=== PATIENT | female | born 1985 | race Caucasian/White ===

== ENCOUNTER 2019-03-28 12:05 | Observation (INO) | payer OTHER, SELFPAY ==
--- NOTE | ~2019-03-28 | US_ITS ---
EXAMINATION: US OB follow up w BPP DATE: 03/28/2019 14:16 INDICATION: Small for gestational age. Assess amniotic fluid index and biophysical profile. TECHNIQUE: Real-time pelvic ultrasound was performed. The interpreting radiologist was not present fo r the study. COMPARISON: None FINDINGS: There is a single living fetus in vertex presentation. The placenta is posterior fundal. heart rate is 125 beats per minute (bpm). Normal amniotic fluid index of 11.8 cm (5th%-95%: 7.5-4.4 cm at 37 weeks estimated gestational age). The following biometric data were obtained: BPD: 9.3 cm -> 38 weeks 0 days Head circumference: 33.2 cm -> 37 weeks 6 days Abdominal circumference: 33.6 cm -> 37 weeks 4 days Femur length: 7.1 cm -> 36 weeks 3 days These measurements are concordant. Head circumference to abdominal circumference ratio: 0.99 (normal range 0.91-1.05). Estimated weight: 3191 g (+/-) 479 g, 7 lbs 1 oz (+/-) 1 lb 1 oz Biophysical profile performed by the technologist: breathing (30 sec sustained breathing in 30 minutes): 2 out of 2 movement (3 gross body movements in 30 minutes): 2 out of 2 tone (one episode of cpbyngb-tvptzzekc-tldjevj limb movement): 2 out of 2 Amniotic fluid pocket (2 cm): 2 out of 2 Total score: 8 out of 8 IMPRESSION: 1. Single living fetus in vertex presentation. 2. Normal amniotic fluid index of 11.8 cm. 3. Biophysical profile 8 out of 8. 4. Gestational age by ultrasound of 37 weeks 3 day(s) +/- 2 weeks and 4 days with ultrasound estimat ed date of delivery (DOMO) of 04/15/2019. Estimated weight is 54th percentile by Hadlock criteria when 04/14/2019 is used as the DOMO. Please correlate with clinical information or earlier ultrasounds f or most accurate DOMO. Reviewed, dictated and finalized at location A. GN ARCHITECT IMPRESSION: 1. Single living fetus in vertex presentation. 2. Normal amniotic fluid index of 11.8 cm. 3. Biophysical profile 8 out of 8. 4. Gestational age by ultrasound of 37 weeks 3 day(s) +/- 2 weeks and 4 days w ith ultrasound estimated date of delivery (DOMO) of 04/15/2019. Estimated we ight is 54th percentile by Hadlock criteria when 04/14/2019 is used as the DOMO. P lease correlate with clinical information or earlier ultrasounds for most accur ate DOMO.
[2019-03-28 12:41] VITALS: BP 108/71; PULSE 94
[2019-03-28 13:01] VITALS: BP 104/71; PULSE 92
[2019-03-28 13:21] VITALS: BP 105/66; PULSE 89
[2019-03-28 14:09] LABS: Amphetamine Screen Urine Negative (Negative); Barbiturate Screen Urine Negative (Negative); Benzodiazepines Screen Urine Negative (Negative); Cannabinoid Screen Urine Negative (Negative); Cocaine Screen Urine Negative (Negative); Methadone Screen Urine Negative (Negative); Opiate Screen Urine Negative (Negative); Phencyclidine Screen Urine Negative (Negative)
[2019-03-28 14:13] LABS: Add Urine Microscopic? YES; Appearance Urine Cloudy (Clear); Bacteria Urine 2+ /hpf; Bilirubin Urine Negative (Negative); Blood Urine 3+ (Negative); Color Urine Yellow (Yellow); Glucose Urine UA Negative (Negative); Ketones Urine Negative (Negative); Leukocyte Esterase Ur 3+ LEU/UL (NEGATIVE); Mucus Urine Few /lpf; Nitrate Urine Negative (Negative); Protein Urine 2+ mg/dL (Negative); RBC Urine >75 /hpf (0-2); Specific Grav Ur 1.016 (1.001-1.035); Squamous Epithelial Cell Urine Many /hpf (Few); Urobilinogen Urine Negative mg/dL (<2.0); WBC Clumps Urine Present /HPF; WBC Urine 51-75 /hpf (0-3)
[2019-03-28] MEDS: LACTATED RINGERS 1,000 ML 1000 ML IV CONT (14:30)
[2019-03-28 14:43] LABS: Basophils Absolute Auto 0.1 K/mm3 (0.0-0.1); Basophils Percent Auto 0.5 % (0.2-1.2); Eosinophils Absolute Auto 0.1 K/mm3 (0-0.3); Eosinophils Percent Auto 0.3 % (0-4.4); Hemoglobin 12.8 g/dL (12.0-15.0); Immature Granulocyte Absolute 0.33 K/mm3 (0.00-0.031); Lymphocytes Absolute Auto 1.59 K/mm3 (0.9-3.2); Lymphocytes Percent Auto 9.8 % (18.3-44.2); Mean Corpuscular HGB Conc 32.8 g/dl (32-36); Mean Corpuscular Hemoglobin 28.5 pg (26-34); Mean Corpuscular Volume 86.9 fl (80-100); Mean Platelet Volume 12.8 fl (7.4-10.4); Monocytes Percent Auto 6.1 % (2.6-8.5); Neutrophils Absolute Auto 13.2 K/mm3 (1.3-6.7); Neutrophils Percent Auto 81.3 % (45.5-73.1); Platelet Count Result 149 k/mm3 (150-375); Red Blood Count 4.49 M/mm3 (4.2-5.4); Red Cell Distribution Width 13.4 % (11.5-14.5); White Blood Count 16.2 K/mm3 (4.5-10.0)
--- NOTE | 2019-03-28 15:08 | OBADM ---
This patient, Soraya Chris, admitted to the OB room OB Post 115 for observation. Patient/family oriented to hospital policies and general routines including ID bracelet, bed and alarms, visiting hours, pain management, procedures, bathroom and other care routines, personal items, smoking policy, room service/diet, and visiting hours. Patient/Family are encouraged to report perceived risks to care and to ask questions if they do not understand what they are told or what they should do.
[2019-03-28 15:18] LABS: Alanine Aminotransferase 13 U/L (4-35); Albumin Level 3.8 g/dL (3.5-5.1); Alkaline Phosphatase 218 U/L (38-126); Aspartate Amino Transferase 23 U/L (14-36); Bilirubin,Total 0.4 mg/dL (0.2-1.3); Blood Urea Nitrogen 6 mg/dL (7-17); Calcium 9.1 mg/dL (8.4-10.2); Carbon Dioxide 19 mmol/L (22-30); Chloride 102 mmol/L (98-107); Estimated Glomerular Filt Rate > 60; Glucose 81 mg/dL (65-105); Potassium 3.9 mmol/L (3.4-5.0); Sodium 136 mmol/L (137-145); Uric Acid 5.7 mg/dL (2.5-7.5)
--- NOTE | 2019-04-01 14:37 | PM.OBTRLD ---
OB - Triage/Final Diagnosis Visit Information Date of evaluation: 03/28/19 Comments/Additional reasons for admission: pelvic pain Evaluation Baseline heart rate: 130 Variability: Average (6-10) monitor accelerations: Present monitor decelerations: None Laboratory results: Laboratory Tests 03/28/19 03/28/19 03/28/19 13:32 13:35 14:37 WBC 16.2 H RBC 4.49 Hgb 12.8 Hct 39.0 MCV 86.9 MCH 28.5 MCHC 32.8 RDW 13.4 Plt Count 149 L MPV 12.8 H Immature Gran % (Auto) 2.0 H Neut % (Auto) 81.3 H Lymph % (Auto) 9.8 L [place] % (Auto) 6.1 Eos % (Auto) 0.3 Baso % (Auto) 0.5 Lymph # (Auto) 1.59 [place] # (Auto) 1.0 H Eos # (Auto) 0.1 Baso # (Auto) 0.1 Abs Immat Gran (auto) 0.33 H Absolute Neuts (auto) 13.2 H Absolute Nucleated RBC 0.0 Nucleated RBC % 0.0 Sodium Potassium Chloride Carbon Dioxide BUN Creatinine Estim Creat Clear Calc Estimated GFR Glucose Uric Acid Calcium Total Bilirubin AST ALT Alkaline Phosphatase Total Protein Albumin Urine Color Yellow Urine Appearance Cloudy H Urine pH 7.0 Ur Specific [place] 1.016 Urine Protein 2+ H Urine Glucose (UA) Negative Urine Ketones Negative Ur Blood (Man) 3+ H Urine Nitrate Negative Urine Bilirubin Negative Urine Urobilinogen Negative Ur Leukocyte Esterase 3+ H Urine RBC >75 H Urine WBC 51-75 H Urine WBC Clumps Present H Ur Squamous Epith Cells Many H Urine Bacteria 2+ H Urine Mucus Few H Urine Opiates Screen Negative Urine Methadone Screen Negative Ur Barbiturates Screen Negative Ur Phencyclidine Scrn Negative Ur Amphetamine Screen Negative U Benzodiazepines Scrn Negative Urine Cocaine Screen Negative U Cannabinoids Screen Negative 03/28/19 14:37 WBC RBC Hgb Hct MCV MCH MCHC RDW Plt Count MPV Immature Gran % (Auto) Neut % (Auto) Lymph % (Auto) [place] % (Auto) Eos % (Auto) Baso % (Auto) Lymph # (Auto) [place] # (Auto) Eos # (Auto) Baso # (Auto) Abs Immat Gran (auto) Absolute Neuts (auto) Absolute Nucleated RBC Nucleated RBC % Sodium 136 L Potassium 3.9 Chloride 102 Carbon Dioxide 19 L BUN 6 L Creatinine 0.60 L Estim Creat Clear Calc Not Reportable Estimated GFR > 60 Glucose 81 Uric Acid 5.7 Calcium 9.1 Total Bilirubin 0.4 AST 23 ALT 13 Alkaline Phosphatase 218 H Total Protein 8.0 Albumin 3.8 Urine Color Urine Appearance Urine pH Ur Specific [place] Urine Protein Urine Glucose (UA) Urine Ketones Ur Blood (Man) Urine Nitrate Urine Bilirubin Urine Urobilinogen Ur Leukocyte Esterase Urine RBC Urine WBC Urine WBC Clumps Ur Squamous Epith Cells Urine Bacteria Urine Mucus Urine Opiates Screen Urine Methadone Screen Ur Barbiturates Screen Ur Phencyclidine Scrn Ur Amphetamine Screen U Benzodiazepines Scrn Urine Cocaine Screen U Cannabinoids Screen Final Diagnosis (1) UTI in : Code(s): O23.40 - Unspecified infection of urinary tract in , unspecified trimester Status: Acute Plan: FHT's reassuring, occasional mild contractions. Pt given IV fluids and contractions/pain subsided. Pt noted to have UTI; given Ancef 2g IV once.-- no ss/sx of pyelo Discharged home in stable condition.
--- NOTE | 2019-04-03 09:18 | PM.OBTRLD ---
OB - Triage/Final Diagnosis Evaluation Laboratory results: Laboratory Tests 03/28/19 03/28/19 03/28/19 13:32 13:35 14:37 WBC 16.2 H RBC 4.49 Hgb 12.8 Hct 39.0 MCV 86.9 MCH 28.5 MCHC 32.8 RDW 13.4 Plt Count 149 L MPV 12.8 H Immature Gran % (Auto) 2.0 H Neut % (Auto) 81.3 H Lymph % (Auto) 9.8 L [place] % (Auto) 6.1 Eos % (Auto) 0.3 Baso % (Auto) 0.5 Lymph # (Auto) 1.59 [place] # (Auto) 1.0 H Eos # (Auto) 0.1 Baso # (Auto) 0.1 Abs Immat Gran (auto) 0.33 H Absolute Neuts (auto) 13.2 H Absolute Nucleated RBC 0.0 Nucleated RBC % 0.0 Sodium Potassium Chloride Carbon Dioxide BUN Creatinine Estim Creat Clear Calc Estimated GFR Glucose Uric Acid Calcium Total Bilirubin AST ALT Alkaline Phosphatase Total Protein Albumin Urine Color Yellow Urine Appearance Cloudy H Urine pH 7.0 Ur Specific [place] 1.016 Urine Protein 2+ H Urine Glucose (UA) Negative Urine Ketones Negative Ur Blood (Man) 3+ H Urine Nitrate Negative Urine Bilirubin Negative Urine Urobilinogen Negative Ur Leukocyte Esterase 3+ H Urine RBC >75 H Urine WBC 51-75 H Urine WBC Clumps Present H Ur Squamous Epith Cells Many H Urine Bacteria 2+ H Urine Mucus Few H Urine Opiates Screen Negative Urine Methadone Screen Negative Ur Barbiturates Screen Negative Ur Phencyclidine Scrn Negative Ur Amphetamine Screen Negative U Benzodiazepines Scrn Negative Urine Cocaine Screen Negative U Cannabinoids Screen Negative 03/28/19 14:37 WBC RBC Hgb Hct MCV MCH MCHC RDW Plt Count MPV Immature Gran % (Auto) Neut % (Auto) Lymph % (Auto) [place] % (Auto) Eos % (Auto) Baso % (Auto) Lymph # (Auto) [place] # (Auto) Eos # (Auto) Baso # (Auto) Abs Immat Gran (auto) Absolute Neuts (auto) Absolute Nucleated RBC Nucleated RBC % Sodium 136 L Potassium 3.9 Chloride 102 Carbon Dioxide 19 L BUN 6 L Creatinine 0.60 L Estim Creat Clear Calc Not Reportable Estimated GFR > 60 Glucose 81 Uric Acid 5.7 Calcium 9.1 Total Bilirubin 0.4 AST 23 ALT 13 Alkaline Phosphatase 218 H Total Protein 8.0 Albumin 3.8 Urine Color Urine Appearance Urine pH Ur Specific [place] Urine Protein Urine Glucose (UA) Urine Ketones Ur Blood (Man) Urine Nitrate Urine Bilirubin Urine Urobilinogen Ur Leukocyte Esterase Urine RBC Urine WBC Urine WBC Clumps Ur Squamous Epith Cells Urine Bacteria Urine Mucus Urine Opiates Screen Urine Methadone Screen Ur Barbiturates Screen Ur Phencyclidine Scrn Ur Amphetamine Screen U Benzodiazepines Scrn Urine Cocaine Screen U Cannabinoids Screen Final Diagnosis (1) Near syncope: Code(s): R55 - Syncope and collapse Status: Acute Plan: Pt was evaluated for near syncopal episode in clinic and small for gestational age. She was given IV fluids and felt better. BP's were WNL. Labs were WNL. NST was reassuring w/ occasional contractions. US showed BPP 8/8, normal fluid, and normal growth, cephalic position. She was discharged home in stable condition.
== END 2019-03-28 16:35 | disposition home or self-care (01) ==
PROVIDERS: Admitting Provider Obstetrics & Gynecology; Visit Provider Obstetrics & Gynecology
DX: O26.893 Other specified pregnancy related conditions, third trimester (principal); R10.2 Pelvic and perineal pain; R55 Syncope and collapse; O23.43 Unspecified infection of urinary tract in pregnancy, third trimester; O36.5930 Maternal care for other known or suspected poor fetal growth, third trimester, not applicable or unspecified; Z3A.37 37 weeks gestation of pregnancy
CPT/HCPCS: 36415; 76816; 76819; 80053; 80307; 81001; 84550; 85025; 87077; 87086; 87088; 87186; 96374; G0378; G0379; J0696; J7120

== ENCOUNTER 2019-04-06 11:42 | Observation (INO) | payer OTHER, SELFPAY ==
[2019-04-06 14:10] VITALS: TEMP 36.9
[2019-04-06 14:19] VITALS: BMI 22.0
--- NOTE | 2019-04-06 14:19 | OBADM ---
This patient, Soraya Chris, admitted to the OB room Labor/Delivery/Recovery 103 for observation. Patient/family oriented to hospital policies and general routines including ID bracelet, bed and alarms, visiting hours, pain management, procedures, bathroom and other care routines, personal items, smoking policy, room service/diet, and visiting hours. Patient/Family are encouraged to report perceived risks to care and to ask questions if they do not understand what they are told or what they should do.
--- NOTE | 2019-04-10 16:23 | PM.OBTRLD ---
OB - Triage/Final Diagnosis Final Diagnosis (1) False labor: Code(s): O47.9 - False labor, unspecified Status: Acute
== END 2019-04-06 14:37 | disposition home or self-care (01) ==
PROVIDERS: Admitting Provider Obstetrics & Gynecology; Visit Provider Obstetrics & Gynecology
DX: O47.1 False labor at or after 37 completed weeks of gestation (principal); Z3A.38 38 weeks gestation of pregnancy
CPT/HCPCS: G0378; G0379

== ENCOUNTER 2019-04-11 06:51 | Inpatient (IN) | payer OTHER, SELFPAY ==
[2019-04-11] VITALS (74 sets, daily range): BP systolic 107–143; BP diastolic 52–109; PULSE 72–129; RESP 12–18; TEMP 36.6–37.7; O2SAT 96–100; BMI 25.2
--- NOTE | 2019-04-11 06:51 | LDADM ---
This patient, Soraya Chris, was admitted to Labor/Delivery/Recovery 106 on 04/11/19 at 06:51. Plans for labor, pain management and were discussed with patient. Patient/family oriented to hospital policies and general routines including ID bracelet, bed and alarms, visiting hours, pain management, procedures, bathroom and other care routines, personal items, smoking policy, room service/diet and guest tray routines, infant security routines, and visiting hours. Patient/Family are encouraged to report perceived risks to care and to ask questions if they do not understand what they are told or what they should do. See OBIX for further documentation.
[2019-04-11] MEDS: AMPICILLIN 2 GM/NS 100 ML 2 GM/100 ML BAG IVPB (07:10)
[2019-04-11] MEDS: LACTATED RINGERS 1,000 ML 125 ML IV CONT ×2 (07:10→08:32)
--- NOTE | 2019-04-11 07:40 | PM.IMHP ---
H&P: HPI History of Present Illness Chief complaint: contractions Narrative: Soraya Newton is a 33yo @ 39.4wks who presented to L&D early in the morning via ambulance due to regular and painful contractions. She denied vaginal bleeding or leakage of fluid. She felt good movement. She denied CP, SOB, IRIVN, vision changes, fever, chills. She is GBS positive. Review of Systems Review of Systems: All systems reviewed & are unremarkable except as noted in HPI and below [facility] Family History Family History Father Hypertension Mother Hypotension Sibling Psoriasis Meds Home Medications and Allergies Home Medications Medication Instructions Recorded Confirmed Type PNV cmb#95-ferrous fumarate-FA 1 tablet PO DAILY 03/17/19 04/11/19 History [] Allergies Allergy/AdvReac Type Severity Reaction Status Date / Time No Known Allergies Allergy Verified 04/11/19 09:01 Vital Signs Vital Signs - 24 hr 04/11/19 07:31 04/11/19 07:46 04/11/19 08:00 Temperature 37.3 C Pulse Rate 86 97 83 Respiratory Rate Blood Pressure 113/70 115/76 115/73 Pulse Oximetry 04/11/19 08:16 04/11/19 08:31 04/11/19 08:35 Temperature Pulse Rate 91 118 H 111 H Respiratory Rate Blood Pressure 113/83 123/102 H 127/81 Pulse Oximetry 04/11/19 08:37 04/11/19 08:38 04/11/19 08:39 Temperature Pulse Rate 101 H 97 Respiratory Rate Blood Pressure 121/63 114/71 Pulse Oximetry 98 04/11/19 08:41 04/11/19 08:42 04/11/19 08:43 Temperature Pulse Rate 89 85 Respiratory Rate Blood Pressure 143/74 H 107/67 Pulse Oximetry 96 96 04/11/19 08:45 04/11/19 08:47 04/11/19 08:48 Temperature Pulse Rate 91 95 Respiratory Rate Blood Pressure 110/68 118/67 Pulse Oximetry 97 04/11/19 08:49 04/11/19 08:51 04/11/19 08:53 Temperature Pulse Rate 95 92 92 Respiratory Rate Blood Pressure 113/64 111/67 119/66 Pulse Oximetry 96 04/11/19 08:54 04/11/19 08:55 04/11/19 08:56 Temperature 37.3 C Pulse Rate 87 90 Respiratory Rate 18 Blood Pressure 107/61 116/70 Pulse Oximetry 04/11/19 08:58 04/11/19 09:01 04/11/19 09:03 Temperature Pulse Rate 105 H 94 88 Respiratory Rate Blood Pressure 120/75 108/52 L 113/57 L Pulse Oximetry 97 96 04/11/19 09:05 04/11/19 09:07 04/11/19 09:08 Temperature Pulse Rate 92 103 H Respiratory Rate Blood Pressure 119/62 111/69 Pulse Oximetry 97 04/11/19 09:09 04/11/19 09:11 04/11/19 09:13 Temperature Pulse Rate 92 83 87 Respiratory Rate Blood Pressure 121/72 112/75 117/68 Pulse Oximetry 96 04/11/19 09:15 04/11/19 09:16 04/11/19 09:18 Temperature Pulse Rate 90 90 Respiratory Rate Blood Pressure 119/74 115/70 Pulse Oximetry 96 04/11/19 09:23 04/11/19 09:28 04/11/19 09:31 Temperature Pulse Rate 84 Respiratory Rate Blood Pressure 118/69 Pulse Oximetry 98 99 04/11/19 09:33 04/11/19 09:38 04/11/19 09:43 Temperature Pulse Rate Respiratory Rate Blood Pressure Pulse Oximetry 98 96 97 04/11/19 09:46 04/11/19 09:48 04/11/19 09:53 Temperature Pulse Rate 90 Respiratory Rate Blood Pressure 122/70 Pulse Oximetry 98 98 04/11/19 09:58 04/11/19 10:00 04/11/19 10:03 Temperature Pulse Rate 97 Respiratory Rate Blood Pressure 132/79 Pulse Oximetry 98 99 04/11/19 10:08 04/11/19 10:09 04/11/19 10:10 Temperature 37.7 C H Pulse Rate Respiratory Rate Blood Pressure Pulse Oximetry 100 100 04/11/19 10:14 04/11/19 10:16 04/11/19 10:19 Temperature Pulse Rate 129 H Respiratory Rate Blood Pressure 141/109 H Pulse Oximetry 100 99 04/11/19 10:22 04/11/19 10:26 04/11/19 10:27 Temperature Pulse Rate Respiratory Rate Blood Pressure Pulse Oximetry 99 98 99 04/11/19 10:31 04/11/19 10:32 04/11/19
[2019-04-11 08:05] LABS: Basophils Percent Auto 0.4 % (0.2-1.2); Eosinophils Absolute Auto 0.2 K/mm3 (0-0.3); Eosinophils Percent Auto 1.9 % (0-4.4); Hematocrit 33.9 % (37.0-47.0); Hemoglobin 10.9 g/dL (12.0-15.0); Immature Granulocyte Absolute 0.18 K/mm3 (0.00-0.031); Immature Granulocyte Percent A 1.7 % (0-0.5); Lymphocytes Absolute Auto 2.03 K/mm3 (0.9-3.2); Lymphocytes Percent Auto 18.6 % (18.3-44.2); Mean Corpuscular HGB Conc 32.2 g/dl (32-36); Mean Corpuscular Hemoglobin 27.8 pg (26-34); Mean Corpuscular Volume 86.5 fl (80-100); Mean Platelet Volume 12.7 fl (7.4-10.4); Monocytes Absolute Auto 0.9 K/mm3 (0.1-0.6); Monocytes Percent Auto 7.9 % (2.6-8.5); Neutrophils Absolute Auto 7.6 K/mm3 (1.3-6.7); Neutrophils Percent Auto 69.5 % (45.5-73.1); Platelet Count Result 138 k/mm3 (150-375); Red Blood Count 3.92 M/mm3 (4.2-5.4); Red Cell Distribution Width 14.1 % (11.5-14.5); White Blood Count 10.9 K/mm3 (4.5-10.0)
--- NOTE | 2019-04-11 08:10 | PC.NURSE ---
All notes entered by Reyna Mendez RN since admission until current.
--- NOTE | 2019-04-11 08:56 | WPDANESEPP ---
Anes - Eval Pre Procedure Procedure: Labor Pain Management Date/Time: 04/11/19 08:56 Surgeon: Neema Pre Op Diagnosis: contractions Patient Data Age: 33 Gender: F Height: 5 ft 6 in Weight: 71 kg Last Vital Signs Temp 99.1 F 04/11/19 08:54 Pulse 87 04/11/19 08:55 Resp 18 04/11/19 08:54 BP 107/61 04/11/19 08:55 Pulse Ox 96 04/11/19 08:53 Allergies Allergy/AdvReac Type Severity Reaction Status Date / Time No Known Allergies Allergy Verified 03/17/19 15:09 Home Medications Medication Instructions Recorded Confirmed Type PNV cmb#95-ferrous fumarate-FA 1 tablet PO DAILY 03/17/19 04/11/19 History [] Laboratory Tests 04/11/19 04/11/19 04/11/19 07:50 07:50 07:50 WBC 10.9 K/mm3 H K/mm3 (4.5-10.0) RBC 3.92 M/mm3 L M/mm3 (4.2-5.4) Hgb 10.9 g/dL L g/dL (12.0-15.0) Hct 33.9 % L % (37.0-47.0) MCV 86.5 fl fl (80-100) MCH 27.8 pg pg (26-34) MCHC 32.2 g/dl g/dl (32-36) RDW 14.1 % % (11.5-14.5) Plt Count 138 k/mm3 L k/mm3 (150-375) MPV 12.7 fl H fl (7.4-10.4) Immature Gran % (Auto) 1.7 % H % (0-0.5) Neut % (Auto) 69.5 % % (45.5-73.1) Lymph % (Auto) 18.6 % % (18.3-44.2) [place] % (Auto) 7.9 % % (2.6-8.5) Eos % (Auto) 1.9 % % (0-4.4) Baso % (Auto) 0.4 % % (0.2-1.2) Lymph # (Auto) 2.03 K/mm3 K/mm3 (0.9-3.2) [place] # (Auto) 0.9 K/mm3 H K/mm3 (0.1-0.6) Eos # (Auto) 0.2 K/mm3 K/mm3 (0-0.3) Baso # (Auto) 0.0 K/mm3 K/mm3 (0.0-0.1) Abs Immat Gran (auto) 0.18 K/mm3 H K/mm3 (0.00-0.031) Absolute Neuts (auto) 7.6 K/mm3 H K/mm3 (1.3-6.7) Absolute Nucleated RBC 0.0 K/mm3 K/mm3 (0.0-0.012) Nucleated RBC % 0.0 % % (0.0-0.2) RPR Pending HIV 1&2 Ab/P24 Ag 4thGn Pending Blood Type Antibody Screen 04/11/19 07:50 WBC RBC Hgb Hct MCV MCH MCHC RDW Plt Count MPV Immature Gran % (Auto) Neut % (Auto) Lymph % (Auto) [place] % (Auto) Eos % (Auto) Baso % (Auto) Lymph # (Auto) [place] # (Auto) Eos # (Auto) Baso # (Auto) Abs Immat Gran (auto) Absolute Neuts (auto) Absolute Nucleated RBC Nucleated RBC % RPR HIV 1&2 Ab/P24 Ag 4thGn Blood Type Pending Antibody Screen Pending : gestational age (EDC 04/14/19) Patient hx anesthesia problems: none Family hx anesthesia problems: none [facility] Family History Family History (Updated 03/17/19 @ 15:12 by Shara Nicole RN) Father Hypertension Mother Hypotension Sibling Psoriasis Social History Social History Smoking status: Never smoker Second hand tobacco smoke exposure: No Substance use: former 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
[2019-04-11 08:59] LABS: HIV 1/2 Ab P24 Ag Result Negative (Negative)
--- NOTE | 2019-04-11 10:31 | P.PCNOB_ITS ---
OB - Delivery Note Procedure Delivery date: 04/11/19 Route of delivery: Laceration description: None Specimen: Yes Estimated blood loss (mL): 100 Anesthesia type: Epidural Disposition: floor Narrative: Patient prepped and draped usual manner for this procedure. Maternal expulsive efforts readily deliver the vertex which was not suctioned of nasal oropharynx. Rest of baby was readily delivered without difficulty cord was clamped and cut baby was passed on the maternal abdomen. Placenta delivered spontaneously. Uterus was well contracted. Cervix and vagina were inspected and no lacerations or tears. This point seems was considered terminated immediate postop condition mother and baby were both excellent [place] Baby Weeks of gestation at delivery: 39 gender: Male Weight (pounds): 6 Weight (ounces): 10 presentation: vertex Placenta delivery description: Spontaneous cord vessel description: 3 Vessels score one minute: 8 score five minutes: 9
[2019-04-11 10:56] LABS: Rapid Plasma Reagin Non-Reactive (NonReactive)
[2019-04-11] MEDS: IBUPROFEN 600 MG TABLET PO ×2 (11:52→19:19)
[2019-04-11 12:53] LABS: Amphetamine Screen Urine Negative (Negative); Barbiturate Screen Urine Negative (Negative); Benzodiazepines Screen Urine Negative (Negative); Cannabinoid Screen Urine Negative (Negative); Cocaine Screen Urine Negative (Negative); Methadone Screen Urine Negative (Negative); Opiate Screen Urine Positive (Negative); Phencyclidine Screen Urine Negative (Negative)
--- NOTE | 2019-04-11 18:57 | OBPPTRN ---
Patient transferred to post room #291 via W/C. Support person present. Oriented to unit, room, information board, rooming in, admission packet and security measures. Patient verbalizes understanding.
[2019-04-12 05:43] LABS: Hematocrit 34.4 % (37.0-47.0)
[2019-04-12 08:40] VITALS: BP 107/71; PULSE 108; RESP 18; TEMP 37.4
--- NOTE | 2019-04-12 09:50 | WPDANLDPN2 ---
Anes-Prog Note L&D Date/Time: 04/12/19 09:50 Comfortable throughout: labor and delivery Neuraxial method: epidural Epidural/Spinal procedure site: clean & non-tender Neuro status: Neuro function grossly intact. Cardiovascular status: normal Respiratory status: normal Airway patency: baseline Mental status: baseline Post-Op hydration status: normal Vital Signs: Last Vital Signs Temp 37.4 C 04/12/19 08:40 Pulse 108 H 04/12/19 08:40 Resp 18 04/12/19 08:40 BP 107/71 04/12/19 08:40 Pulse Ox 97 04/11/19 13:35 Post-procedural complaints: none Patient feedback: Patient satisfied with anesthetic care.
[2019-04-12] MEDS: TETANUS,DIPHTHERIA,AC PERTUSSIS ADULT 0.5 ML (ADACEL) IM (10:26)
--- NOTE | 2019-04-12 12:43 | P.PNOB_ITS ---
OB - PN: Subj Subjective Date/time seen: 04/12/19 12:43 Soraya is a 33yo now P3003 s/p , PPD# 1 She reports doing well. She is tolerating regular diet w/o N/V. She has ambulated w/o s/sx of anemia. She has passed flatus and voided spontaneously. She reports normal vaginal bleeding. Her pain is controlled with pain medications. She is bottle feeding. She does desire a circumcision for her son. No IRVIN, CP, SOB, fever chills, dizziness. OB - PN: Obj Data Labs CBC & Chem 7: 04/12/19 04:20 Labs: Laboratory Results - last 24 hr 04/11/19 04/12/19 11:57 04:20 Hgb 11.0 L Hct 34.4 L Urine Opiates Screen Positive A Urine Methadone Screen Negative Ur Barbiturates Screen Negative Ur Phencyclidine Scrn Negative Ur Amphetamine Screen Negative U Benzodiazepines Scrn Negative Urine Cocaine Screen Negative U Cannabinoids Screen Negative OB - PN A/P Plan day: 1 Plan: routine care Comments: - meeting appropriate milestones - labs/vitals/exam stable - pain meds prn - regular diet - ambulation encouraged - bottle feeding - follow up on stool sample for ova and parasites - anticipate d/c home on PPD #2. Pain, fever, bleeding, HTN return precautions reviewed with the patient. Take meds as prescribed. Pelvic rest. F/u in clinic in 3-4 weeks. Time Spent With Patient Time: Total time spent is greater than 50% in coordination of care (as do cumented) at patient's floor/unit and/or counseling patient: Review of Systems Review of Systems: All systems reviewed & are unremarkable except as noted in HPI and below Exam Const: General: comfortable, no acute distress, alert and awake Resp: Effort & Inspection: normal respiratory effort Auscultation: clear to auscultation bilaterally Cardio: Rate: regular rate GI: Auscultation: normal bowel sounds Other: fundus firm below umbilicus : Other: normal lochia on pad Psych: Appearance: grossly normal Affect: normal affect Attitude: cooperative
--- NOTE | 2019-04-12 16:00 | PC.NURSE ---
Patient was given the opportunity to view the discharge video Mother & Baby Care, The First Two Weeks and to ask questions. Patient declined viewing the video and has been given the mother/baby guide for home reference.
[2019-04-12 18:30] VITALS: BP 107/70; PULSE 85; RESP 18; TEMP 36.5; O2SAT 98
[2019-04-12] MEDS: IBUPROFEN 600 MG TABLET PO (20:40)
[2019-04-13 07:50] VITALS: BP 108/76; PULSE 74; RESP 18; TEMP 36.6
[2019-04-13] MEDS: IBUPROFEN 600 MG TABLET PO (08:10)
--- NOTE | 2019-04-13 09:16 | P.PNOB_ITS ---
OB - PN: Subj Subjective Date/time seen: 04/13/19 09:16 Soraya is a 33yo now P3003 s/p , PPD# 2 She reports doing wel, and ready to go homel. She is tolerating regular diet w/o N/V. She has ambulated w/o s/sx of anemia. She has passed flatus and voided spontaneously. She reports normal vaginal bleeding. Her pain is controlled with pain medications. She is bottle feeding. No IRVIN, CP, SOB, fever chills, d izziness. OB - PN: Obj Data Labs CBC & Chem 7: 04/12/19 04:20 OB - PN A/P Plan day: 2 Plan: routine care and discharge home Comments: - meeting all milestones - labs/vitals/exam stable - pain meds prn-- rx sent to pharmacy - regular diet - ambulation encouraged - bottle feeding - follow up on stool sample for ova and parasites - D/c home today. Pain, fever, bleeding, HTN return precautions reviewed with the patient. Take meds as prescribed. Pelvic rest. F/u in clinic in 3-4 weeks. Time Spent With Patient Time: Total time spent is greater than 50% in coordination of care (as documented) at patient's floor/unit and/or counseling patient: Review of Systems Review of Systems: All systems reviewed & are unremarkable except as noted in HPI and below Exam Const: General: comfortable, no acute distress, alert and awake Resp: Effort & Inspection: normal respiratory effort Auscultation: clear to auscultation bilaterally Cardio: Rate: regular rate GI: Auscultation: normal bowel sounds Other: fundus firm below umbilicus Psych: Appearance: grossly normal Attitude: cooperative
[2019-04-14 08:51] VITALS: BP 122/85; PULSE 87; RESP 20; TEMP 36.6
--- NOTE | 2019-04-16 08:31 | PM.OBDSVD ---
DS: Diagnosis Admitting Diagnosis Admitting Diagnosis: Encounter for supervision of normal , unspecified, unspecified trimester Discharge Diagnosis (1) Pain during labor: Code(s): O99.89 - Other specified diseases and conditions complicating , childbirth and the puerperium; R52 - Pain, unspecified Status: Acute (2) : Code(s): Z34.90 - Encounter for supervision of normal , unspecified, unspecified trimester Status: Acute OB - DS: Summary OB Procedures : Ultrasound OB Procedures Intrapartum: Spontaneous Vag Delivery and GBS prophylaxis OB Procedures: : None Peripartum Data Delivery Method: Natural Vaginal Laceration description: None complications: none [place] 1: Gender: Male Disposition of : other (s/p circumcision) Status at Discharge Functional status at discharge: independent ambulation Overall status at discharge: patient is back to baseline Time Spent with Patient Time attestation: Total time spent providing and/or coordinating discharge services: Exam Narrative: Exam Narrative: Const: General: comfortable, no acute distress, alert and awake Resp: Effort & Inspection: normal respiratory effort Auscultation: clear to auscultation bilaterally Cardio: Rate: regular rate GI: Auscultation: normal bowel sounds Other: fundus firm below umbilicus Psych: Appearance: grossly normal Attitude: cooperative DS: Data Data Completed and Pending Pending studies at discharge: Pending at discharge 04/11/19 10:26 Surgical [PTH] Routine Labs on day of discharge: stool studies for ova and parasites pending Discharge Plan Discharge Attending physician on discharge: Holly Stephens Discharging Clinician: Holly Stephens Anticipated Discharge Date/Time: 04/13/19 13:00 Patient Disposition: Home, Self-Care Activity: pelvic rest Diet: regular Discharge Instructions: Education: Mom and Baby Guide Given to: Mother Follow-Up: Call your delivering provider's office for an appointment to be seen in: Call MD for appointment Mom and baby should come to the [facility] for the follow-up appointment. Appointment Date/Time: April 14, 2019 at 9:00 am What to expect at your follow-up visit: Physical Assessment Call [phone] if you are unable to keep your appointment time. BREAST CARE: 1. Wear a snug supportive bra. 2. For engorgement discomfort: Bottle Feeding: A. May apply ice packs PERINEAL CARE: 1. Until bleeding stops, use your ryan bottle after urinating 2. Change your pad frequently throughout the day ACTIVITY: 1. Rest as much as possible. 2. Do not exercise or lift anything heavier than your baby (such as laundry or other children.) 3. Avoid stairs or driving as much as possible. 4. Do not put anything into the vagina. No douching, tampons, or sexual activity until seen by physician. NOTIFY PHYSICIAN IF YOU HAVE ANY QUESTIONS OR IF ANY OF THE FOLLOWING SYMPTOMS OCCUR: 1. If your vaginal bleeding becomes foul smelling. 2. If your vaginal bleeding becomes more heavy than a period or if your bleeding changes from pink to bright red. However, you may pass an occasional walnut-sized clot once or twice for the first week . 3. If you experience a sharp, shooting pain in you calves. 4. If you discover a hard, reddened area on your breast or if you experience flu-like symptoms. DIET: 1. Eat regular, well-balanced meals. 2. Drink plenty of fluids daily. If , drink to thirst. Stand Alone Forms: General Discharge Information Follow-up/Referrals: Holly Stephens MD [Physician] - Discharge Medications: New acetaminophen [Mapap (acetaminophen)] 325 mg Tablet 650 mg PO Q6H PRN (Reason: Mild Pain (1-3) Or Headache) 7 Days Qty: 50 RF: 0 ibuprofen 600 mg Tablet 600 mg PO Q6H PRN (Reason: Cramping) 10 Days Qty: 40 RF:
== END 2019-04-13 11:05 | disposition home or self-care (01) | DRG 560 ==
LOC: ANHOB2 04-13 08:57 → ANHLDR 04-15 11:59 → ANHOB2 04-15 11:59
PROVIDERS: Obstetrics & Gynecology; Admitting Provider Obstetrics & Gynecology; Visit Provider Obstetrics & Gynecology
DX: O98.82 Other maternal infectious and parasitic diseases complicating childbirth (principal); B95.1 Streptococcus, group B, as the cause of diseases classified elsewhere; Z3A.39 39 weeks gestation of pregnancy; Z37.0 Single live birth
CPT/HCPCS: 36415; 80307; 85014; 85018; 85025; 86592; 86703; 86850; 86900; 86901; 87177; 87205; 87209; 88307; 90715; A9270; G0432; J0290; J2590; J2795; J7120

== ENCOUNTER 2020-11-13 12:59 | Outpatient (RCR) | payer OTHER, SELFPAY ==
[2020-11-13 13:48] VITALS: BP 94/63; PULSE 81
== END 2020-12-27 09:25 | disposition home or self-care (01) ==
LOC: ANHOBOP 12:59
PROVIDERS: Visit Provider Obstetrics & Gynecology
DX: O36.5930 Maternal care for other known or suspected poor fetal growth, third trimester, not applicable or unspecified (principal); Z3A.33 33 weeks gestation of pregnancy
CPT/HCPCS: 59025

== ENCOUNTER 2020-12-13 13:24 | Inpatient (IN) | payer OTHER, SELFPAY ==
[2020-12-13] VITALS (49 sets, daily range): BP systolic 100–192; BP diastolic 57–165; PULSE 73–212; RESP 16; TEMP 36.5–37; O2SAT 97–100; BMI 22.4
[2020-12-13 14:08] LABS: Basophils Absolute Auto 0.1 K/mm3 (0.0-0.1); Basophils Percent Auto 0.6 % (0.2-1.2); Eosinophils Absolute Auto 0.1 K/mm3 (0-0.3); Eosinophils Percent Auto 1.1 % (0-4.4); Hematocrit 40.1 % (37.0-47.0); Hemoglobin 13.6 g/dL (12.0-15.0); Immature Granulocyte Absolute 0.15 K/mm3 (0.00-0.031); Immature Granulocyte Percent A 1.2 % (0-0.5); Lymphocytes Absolute Auto 2.42 K/mm3 (0.9-3.2); Lymphocytes Percent Auto 19.9 % (18.3-44.2); Mean Corpuscular HGB Conc 33.9 g/dl (32-36); Mean Corpuscular Hemoglobin 31.1 pg (26-34); Mean Corpuscular Volume 91.8 fl (80-100); Mean Platelet Volume 12.3 fl (7.4-10.4); Monocytes Absolute Auto 0.8 K/mm3 (0.1-0.6); Monocytes Percent Auto 6.9 % (2.6-8.5); Neutrophils Absolute Auto 8.5 K/mm3 (1.3-6.7); Neutrophils Percent Auto 70.3 % (45.5-73.1); Platelet Count Result 185 k/mm3 (150-375); Red Blood Count 4.37 M/mm3 (4.2-5.4); Red Cell Distribution Width 13.2 % (11.5-14.5); White Blood Count 12.2 K/mm3 (4.5-10.0)
[2020-12-13] MEDS: AMPICILLIN 2 GM/NS 100 ML 2 GM/100 ML BAG IVPB (14:17)
[2020-12-13] MEDS: LACTATED RINGERS 1,000 ML 125 ML IV CONT ×2 (14:17→15:25)
[2020-12-13] MEDS: OXYTOCIN 30 UNITS/NS 500 ML 30 UNITS/500 ML BAG IV CONT (14:17)
--- NOTE | 2020-12-13 14:19 | LDADM ---
This patient, Soraya Chris, was admitted to Labor/Delivery/Recovery 103 on 12/13/20 at 13:24. Plans for labor, pain management and were discussed with patient. Patient/family oriented to hospital policies and general routines including ID bracelet, bed and alarms, visiting hours, pain management, procedures, bathroom and other care routines, personal items, smoking policy, room service/diet and guest tray routines, infant security routines, and visiting hours. Patient/Family are encouraged to report perceived risks to care and to ask questions if they do not understand what they are told or what they should do. See OBIX for further documentation.
[2020-12-13 15:00] LABS: Alanine Aminotransferase 15 U/L (4-35); Albumin Level 3.8 g/dL (3.5-5.1); Alkaline Phosphatase 132 U/L (38-126); Anion Gap 9 mmol/L (8-16); Aspartate Amino Transferase 23 U/L (14-36); Bilirubin,Total 0.4 mg/dL (0.2-1.3); Blood Urea Nitrogen 7 mg/dL (7-17); Calcium 8.9 mg/dL (8.4-10.2); Carbon Dioxide 19 mmol/L (22-30); Chloride 107 mmol/L (98-107); Estimated CRCL calculation 107 ml/min; Estimated Glomerular Filt Rate > 60; Glucose 87 mg/dL (65-110); Potassium 3.5 mmol/L (3.4-5.0); Sodium 135 mmol/L (137-145)
[2020-12-13 15:13] LABS: HIV 1/2 Ab P24 Ag Result Negative (Negative)
--- NOTE | 2020-12-13 15:23 | WPDANESEPP ---
Anes - Eval Pre Procedure Procedure: labor epidural Date/Time: 12/13/20 15:23 Surgeon: nicolas Pre Op Diagnosis: Induction of Labor Patient Data Age: 35 Gender: F Height: 1.7 m Weight: 65 kg Last Vital Signs Temp 37.0 C 12/13/20 14:30 Pulse 106 H 12/13/20 15:16 BP 123/82 12/13/20 15:16 Allergies Allergy/AdvReac Type Severity Reaction Status Date / Time No Known Allergies Allergy Verified 04/11/19 09:01 Home Medications Medication Instructions Recorded Confirmed Type PNV cmb#95-ferrous fumarate-FA 1 tablet PO DAILY 03/17/19 12/13/20 History [] Laboratory Tests 12/13/20 12/13/20 12/13/20 13:45 13:45 13:45 WBC 12.2 K/mm3 H K/mm3 (4.5-10.0) RBC 4.37 M/mm3 M/mm3 (4.2-5.4) Hgb 13.6 g/dL g/dL (12.0-15.0) Hct 40.1 % % (37.0-47.0) MCV 91.8 fl fl (80-100) MCH 31.1 pg pg (26-34) MCHC 33.9 g/dl g/dl (32-36) RDW 13.2 % % (11.5-14.5) Plt Count 185 k/mm3 k/mm3 (150-375) MPV 12.3 fl H fl (7.4-10.4) Immature Gran % (Auto) 1.2 % H % (0-0.5) Neut % (Auto) 70.3 % % (45.5-73.1) Lymph % (Auto) 19.9 % % (18.3-44.2) Mcdonough % (Auto) 6.9 % % (2.6-8.5) Eos % (Auto) 1.1 % % (0-4.4) Baso % (Auto) 0.6 % % (0.2-1.2) Lymph # (Auto) 2.42 K/mm3 K/mm3 (0.9-3.2) Mcdonough # (Auto) 0.8 K/mm3 H K/mm3 (0.1-0.6) Eos # (Auto) 0.1 K/mm3 K/mm3 (0-0.3) Baso # (Auto) 0.1 K/mm3 K/mm3 (0.0-0.1) Abs Immat Gran (auto) 0.15 K/mm3 H K/mm3 (0.00-0.031) Absolute Neuts (auto) 8.5 K/mm3 H K/mm3 (1.3-6.7) Absolute Nucleated RBC 0.0 K/mm3 K/mm3 (0.0-0.012) Nucleated RBC % 0.0 % % (0.0-0.2) Sodium Potassium Chloride Carbon Dioxide Anion Gap BUN Creatinine Estim Creat Clear Calc Estimated GFR Glucose Calcium Total Bilirubin AST ALT Alkaline Phosphatase Total Protein Albumin RPR Hep Bs Antigen HIV 1&2 Ab/P24 Ag 4thGn Negative (Negative) Rubella IgG Antibody Pending Blood Type Antibody Screen Antibody Identification Antigen Identification HECTOR, IgG Interpret HECTOR, Poly Interpret HECTOR, Complement Interp 12/13/20 12/13/20 12/13/20 13:45 13:45 13:45 WBC RBC Hgb Hct MCV MCH MCHC RDW Plt Count MPV Immature Gran % (Auto) Neut % (Auto) Lymph % (Auto) Mcdonough % (Auto) Eos % (Auto) Baso % (Auto) Lymph # (Auto) Mcdonough # (Auto) Eos # (Auto) Baso # (Auto) Abs Immat Gran (auto) Absolute Neuts (auto) Absolute Nucleated RBC Nucleated RBC % Sodium 135 mmol/L L mmol/L (137-145) Potassium 3.5 mmol/L mmol/L (3.4-5.0) Chloride 107 mmol/L mmol/L (98-107) Carbon Dioxide 19 mmol/L L mmol/L (22-30) Anion Gap 9 mmol/L mmol/L (8-16) BUN 7 mg/dL mg/dL (7-17) Creatinine 0.60 mg/dL L mg/dL (0.7-1.0) Estim Creat Clear Calc 107 ml/min ml/min Estimated GFR > 60 (59 - ) Glucose 87 mg/dL mg/dL (65-110) Calcium 8.9 mg/dL mg/dL (8.4-10.2) Total Bilirubin 0.4 mg/dL mg/dL (0.2-1.3) AST 23 U/L U/L (14-36) ALT 15 U/L U/L (4-35) Alkaline Phosphatase 132 U/L H U/L (38-126) Total Protein 7.0
[2020-12-13 15:30] LABS: Rubella IgG Antibody 33.9 IU/ML
[2020-12-13 15:31] LABS: Hepatitis B Surface Antigen Negative (Negative)
--- NOTE | 2020-12-13 17:08 | WPDHPUPDATE1 ---
History and Physical Update Update Date/Time: 12/13/20 17:08 History and Physical has been reviewed, including an updated exam of the patient. There are NO changes in the patient's condition. Risks, benefits, and alternatives have been discussed and questions answered. Patient agrees to proceed with procedure.
--- NOTE | 2020-12-13 17:08 | WPDOBADMIT ---
Obstetrics - Admit Note Admission Note: record reviewed. No pertinent additions to the history and/or any subsequent changes in the physical findings that are not consistent with the expected course of the were found. Additions to the history and/or subsequent changes in the physical findings follow. None.
--- NOTE | 2020-12-13 17:08 | PM.OBPRVD ---
OB - Delivery Note Procedure events: Placental Insufficiency Induction method: none Delivery augmentation: rupture of membranes Route of delivery: vacuum extraction Indication for instrumentation: nonreassuring FHR tracing Episiotomy description: None Laceration Description: None Specimen: Yes Quantitative Blood Loss (ml): 400 Anesthesia type: Epidural Disposition: floor Complications: retained placenta Narrative: Patient prepped in usual manner for this procedure. Maternal expulsive efforts brought the baby to +2 to +3 position however difficulty with further descent therefore VAC was placed. With 1 contraction the vertex and delivered in the occiput posterior position rest of baby was the without difficulty. Cord clamped cut. Placenta removed did not appear to be intact therefore manual exploration of the uterine cavity revealed small pieces of placenta to be retained. Once this was done the placenta did appear to be completely from the uterine cavity. At this point uterus was well contracted with minimal bleeding and the patient tolerated the procedure well. Baby Weeks of gestation at delivery: 38 Infant gender: Female Weight (pounds): 4 Weight (ounces): 15 presentation: vertex position: Right Occiput Posterior Placenta delivery description: Manual Removal score one minute: 9 score five minutes: 9
[2020-12-13] MEDS: OXYTOCIN 30 UNITS/NS 500 ML 30 UNITS/500 ML BAG 125 UNITS IV CONT (17:25)
[2020-12-13] MEDS: ceFAZolin 2 GM/D5W 50 ML 2 GM/50 ML BAG IVPB (18:28)
[2020-12-13 18:51] LABS: Amphetamine Screen Urine Negative (Negative); Barbiturate Screen Urine Negative (Negative); Benzodiazepines Screen Urine Negative (Negative); Cannabinoid Screen Urine Positive (Negative); Cocaine Screen Urine Negative (Negative); Methadone Screen Urine Negative (Negative); Opiate Screen Urine Negative (Negative); Phencyclidine Screen Urine Negative (Negative)
--- NOTE | 2020-12-13 20:13 | OBPPTRN ---
Patient transferred to post room #291 via wheelchair. Support person present. Oriented to unit, room, information board, rooming in, admission packet and security measures. Patient verbalizes understanding.
[2020-12-13] MEDS: IBUPROFEN 600 MG TABLET PO (22:05)
[2020-12-13] MEDS: ACETAMINOPHEN 325 MG TABLET 650 MG PO (22:06)
[2020-12-14 00:45] VITALS: BP 108/71; PULSE 83; RESP 16; TEMP 36.8; O2SAT 96
[2020-12-14 04:35] VITALS: BP 107/67; PULSE 80; RESP 16; TEMP 36.7; O2SAT 97
[2020-12-14] MEDS: ACETAMINOPHEN 325 MG TABLET 650 MG PO (04:41)
[2020-12-14] MEDS: IBUPROFEN 600 MG TABLET PO ×3 (04:41→23:47)
[2020-12-14 05:46] LABS: Hematocrit 34.5 % (37.0-47.0); Hemoglobin 11.7 g/dL (12.0-15.0)
[2020-12-14 07:29] LABS: Rapid Plasma Reagin Non-Reactive (NonReactive)
[2020-12-14 07:53] VITALS: BP 116/72; PULSE 72; RESP 18; TEMP 36.9
--- NOTE | 2020-12-14 08:41 | PM.OBDSVD ---
DS: Admitting Diagnosis Discharge Date 12/15/2020 Admitting Diagnosis OB - DS: Summary OB Procedures : None OB Procedures Intrapartum: Spontaneous Vag Delivery OB Procedures: : None Time Spent with Patient Time attestation: Total time spent providing and/or coordinating discharge services: DS: Data Data Completed and Pending Pending studies at discharge: Pending at discharge 12/13/20 17:32 Surgical [PTH] Routine Labs on day of discharge: Labs from last 24 hours 12/14/20 12/13/20 12/13/20 04:44 13:45 13:45 WBC RBC Hgb 11.7 L Hct 34.5 L MCV MCH MCHC RDW Plt Count MPV Immature Gran % (Auto) Neut % (Auto) Lymph % (Auto) Bremer % (Auto) Eos % (Auto) Baso % (Auto) Lymph # (Auto) Bremer # (Auto) Eos # (Auto) Baso # (Auto) Abs Immat Gran (auto) Absolute Neuts (auto) Absolute Nucleated RBC Nucleated RBC % Sodium 135 L Potassium 3.5 Chloride 107 Carbon Dioxide 19 L Anion Gap 9 BUN 7 Creatinine 0.60 L Estim Creat Clear Calc 107 Estimated GFR > 60 Glucose 87 Calcium 8.9 Total Bilirubin 0.4 AST 23 ALT 15 Alkaline Phosphatase 132 H Total Protein 7.0 Albumin 3.8 Urine Opiates Screen Urine Methadone Screen Ur Barbiturates Screen Ur Phencyclidine Scrn Ur Amphetamine Screen U Benzodiazepines Scrn Urine Cocaine Screen U Cannabinoids Screen RPR Hep Bs Antigen Negative HIV 1&2 Ab/P24 Ag 4thGn Rubella IgG Antibody Blood Type Antibody Screen Antibody Identification Antigen Identification HECTOR, IgG Interpret HECTOR, Poly Interpret HECTOR, Complement Interp 12/13/20 12/13/20 12/13/20 13:45 13:45 13:45 WBC RBC Hgb Hct MCV MCH MCHC RDW Plt Count MPV Immature Gran % (Auto) Neut % (Auto) Lymph % (Auto) Bremer % (Auto) Eos % (Auto) Baso % (Auto) Lymph # (Auto) Bremer # (Auto) Eos # (Auto) Baso # (Auto) Abs Immat Gran (auto) Absolute Neuts (auto) Absolute Nucleated RBC Nucleated RBC % Sodium Potassium Chloride Carbon Dioxide Anion Gap BUN Creatinine Estim Creat Clear Calc Estimated GFR Glucose Calcium Total Bilirubin AST ALT Alkaline Phosphatase Total Protein Albumin Urine Opiates Screen Negative Urine Methadone Screen Negative Ur Barbiturates Screen Negative Ur Phencyclidine Scrn Negative Ur Amphetamine Screen Negative U Benzodiazepines Scrn Negative Urine Cocaine Screen Negative U Cannabinoids Screen Positive A RPR Non-reactive Hep Bs Antigen HIV 1&2 Ab/P24 Ag 4thGn Rubella IgG Antibody Blood Type O Positive Antibody Screen Positive Antibody Identification Anti-E Antigen Identification E Antigen - NEGATIVE HECTOR, IgG Interpret Negative HECTOR, Poly Interpret Negative HECTOR, Complement Interp Not Performed 12/13/20 12/13/20 12/13/20 13:45 13:45 13:45 WBC 12.2 H RBC 4.37 Hgb 13.6 Hct 40.1 MCV 91.8 MCH 31.1 MCHC 33.9 RDW 13.2 Plt Count 185 MPV 12.3 H Immature Gran % (Auto) 1.2 H Neut % (Auto) 70.3 Lymph % (Auto) 19.9 Bremer % (Auto) 6.9 Eos % (Auto) 1.1 Baso % (Auto) 0.6 Lymph # (Auto) 2.42 Bremer # (Auto) 0.8 H Eos # (Auto) 0.1 Baso # (Auto) 0.1 Abs Immat Gran (auto) 0.15 H Absolute Neuts (auto) 8.5 H Absolute Nucleated RBC 0.0 Nucleated RBC % 0.0 Sodium Potassium Chloride Carbon Dioxide Anion Gap BUN Creatinine Estim Creat Clear Calc Estimated GFR Glucose Calcium Total Bilirubin AST ALT Alkaline Phosphatase Total Protein Albumin Urine Opiates Screen Urine Methadone Screen Ur Barbiturates Screen Ur Phencyclidine Scrn Ur Amphetamine Screen U Benzod
--- NOTE | 2020-12-14 10:14 | WPDANLDPN2 ---
Anes-Prog Note L&D Date/Time: 12/14/20 10:14 Comfortable throughout: labor and delivery Neuraxial method: epidural Epidural/Spinal procedure site: clean & non-tender Neuro status: Neuro function grossly intact. Cardiovascular status: normal Respiratory status: normal Airway patency: baseline Mental status: baseline Post-Op hydration status: normal Vital Signs: Last Vital Signs Temp 36.9 C 12/14/20 07:53 Pulse 72 12/14/20 07:53 Resp 18 12/14/20 07:53 BP 116/72 12/14/20 07:53 Pulse Ox 97 12/14/20 04:35 Pain score (VAS): 02/21 I/O: Intake & Output 12/13/20 12/14/20 12/14/20 23:59 07:59 15:59 Intake Total 1500 Output Total 456 Balance 1044 Post-procedural complaints: none Patient feedback: Patient satisfied with anesthetic care.
[2020-12-14 12:30] VITALS: BP 103/65; PULSE 68; RESP 18; TEMP 36.8
[2020-12-14 16:00] VITALS: BP 112/75; PULSE 69; RESP 18; TEMP 36.6
[2020-12-14] MEDS: WITCH HAZEL 40 PADS 1 PAD TOPICAL (16:05)
[2020-12-14] MEDS: BENZOCAINE 20% AER SPR (*SP) 56 GM CAN 1 SPRAY TOPICAL (16:05)
[2020-12-14] MEDS: DOCUSATE SODIUM 100 MG CAPSULE PO (16:05)
[2020-12-14 20:00] VITALS: BP 108/70; PULSE 73; RESP 18; TEMP 36.6; O2SAT 99
[2020-12-14] MEDS: TETANUS,DIPHTHERIA,AC PERTUSSIS ADULT (0.5 ML) BOOSTRIX IM (23:49)
[2020-12-15] MEDS: IBUPROFEN 600 MG TABLET PO ×2 (09:57→16:14)
[2020-12-15] MEDS: DOCUSATE SODIUM 100 MG CAPSULE PO (09:58)
[2020-12-15 10:30] VITALS: BP 118/73; PULSE 83; RESP 16; TEMP 36.7; O2SAT 98
--- NOTE | 2020-12-15 11:57 | PCCCNOTE ---
Addendum entered by Ebonie Mandi Carter, [facility] 12/16/20 12:53: 1245: Spoke with MARGY Hadley who reports DCFS worker Liliane Thea met with pt. and FOB today. MARGY Hadley reports Liliane will follow up with pt. and FOB at their home and gave the ok to discharge baby today. Addendum entered by Ebonie ThurmanGregorio Carter, [facility] 12/15/20 15:32: 1530: Recvd phone call from [facility] worker AmberLois Roberto [phone] who reports will be here at [facility] to meet with pt. and FOB at 1300. MARGY hodge. Original Note: Care Coordination: Patient tested + for THC during UDS. Pt. reports using for her appetite and nausea. Baby's meconium is pending. Baby is underweight and will be monitored for a few more days, per MARGY Franco. Pt. and FOB Jean to stay in a non-care bed. Pt. states will return home with her, Jean, three other children (5, 4 and 1 year olds) and pt's father Angelo in [place]. Pt. reports having a large family support system. Pt. reports having all necessary items for and denies needs. Pt. reports being already established with [facility] [employer]. Pt. reports a false complaint was filed with [facility] in 2019 and it was quickly closed/unfounded. resources provided. [facility] Intake #[id number]. MARGY hodge.
--- NOTE | 2020-12-15 19:51 | PC.NURSE ---
1600 Phone call from Medical Clinic Manager asking about when pt started care with Dr. Hernandez. Per pt's record, pt first saw Dr. Hernandez at about 20 wks, in August,. regulatory compliance coordinator reported that information to DCFS and then called nurse again, reporting that DCFS will see pt about 1300 tomorrow.
[2020-12-15] MEDS: ACETAMINOPHEN 325 MG TABLET 650 MG PO (20:16)
--- NOTE | 2020-12-17 11:24 | P.DS_ITS ---
DS: Admitting Diagnosis Discharge Date 12/15/20 Admitting Diagnosis OB - DS: Summary OB Procedures : None OB Procedures Intrapartum: Vacuum extraction OB Procedures: : None Time Spent with Patient Time attestation: Total time spent providing and/or coordinating discharge services: DS: Data Data Completed and Pending Completed studies during hospitalization: Pending at discharge 12/13/20 17:32 Surgical [PTH] Routine Discharge Plan Discharge Discharging Clinician: Otis Hernandez Patient Disposition: Home, Self-Care Activity: as tolerated Diet: as tolerated Discharge Instructions: Education: Mom and Baby Guide Given to: Mother Follow-Up: Call your delivering provider's office for an appointment to be seen in: 3 weeks Mom and baby should come to the [facility] for the follow-up appointment. Appointment Date/Time: at time assigned when baby is discharged home What to expect at your follow-up visit: Blood Pressure Check Physical Assessment Call [phone] if you are unable to keep your appointment time. BREAST CARE: * Wear a snug supportive bra. * For engorgement discomfort: Bottle Feeding: * May apply ice packs EPISIOTOMY/PERINEAL CARE: * Until bleeding stops, use your ryan bottle after urinating * Change your pad frequently throughout the day * You may take sitz baths several times a day (fill your bathtub with warm water and soak for 20 minutes.) Do NOT bathe in the water * No tub baths until seen by your physician - You may shower ACTIVITY: * Rest as much as possible. * Do not exercise or lift anything heavier than your baby (such as laundry or other children.) * Avoid stairs or driving as much as possible. * Do not put anything into the vagina. No douching, tampons, or sexual activity until seen by physician. NOTIFY PHYSICIAN IF YOU HAVE ANY QUESTIONS OR IF ANY OF THE FOLLOWING SYMPTOMS OCCUR: * If your perineum becomes red, swollen, or more painful than what you have experienced in the hospital. * If your vaginal bleeding becomes foul smelling. * If your vaginal bleeding becomes more heavy than a period or if your bleeding changes from pink to bright red. However, you may pass an occasional walnut- sized clot once or twice for the first week . * If you experience a sharp, shooting pain in you calves. * If you discover a hard, reddened area on your breast or if you experience flu- like symptoms. *Temperature of 100.4 or higher DIET: * Eat regular, well-balanced meals. * Drink plenty of fluids daily. If , drink to thirst. Stand Alone Forms: General Discharge Information Follow-up/Referrals: Otis Hernandez MD [Physician] - 3 Weeks Discharge Medications: New ibuprofen 600 mg Tablet 600 mg PO Q6H PRN (Reason: Cramping) Qty: 30 RF: 0 Continued PNV cmb#95-ferrous fumarate-FA [] 28 mg iron- 800 mcg Tablet 1 tablet PO DAILY RF: 0 Date of admission: 12/13/20 13:24 Primary Care Provider: PHYSICIAN,GERENTOLOGICAL PHYSIOTHERAPIST Admitting Provider: Otis Hernandez Attending physician on admission: Otis Hernandez Condition: Stable
== END 2020-12-15 20:22 | disposition home or self-care (01) | DRG 541 ==
LOC: ANHLDR 13:37 → ANHOB2 20:16
PROVIDERS: Admitting Provider Obstetrics & Gynecology; Visit Provider Obstetrics & Gynecology
DX: O36.5130 Maternal care for known or suspected placental insufficiency, third trimester, not applicable or unspecified (principal); Z3A.38 38 weeks gestation of pregnancy; Z37.0 Single live birth; O73.0 Retained placenta without hemorrhage; O76 Abnormality in fetal heart rate and rhythm complicating labor and delivery; O99.824 Streptococcus B carrier state complicating childbirth
CPT/HCPCS: 36415; 80053; 80307; 85014; 85018; 85025; 86592; 86703; 86762; 86850; 86880; 86900; 86901; 86902; 87340; 88307; 90715; A9270; G0432; J0290; J0690; J2590; J2795; J7120

== ENCOUNTER 2024-05-08 06:38 | Day surgery (SDC) | payer SELFPAY ==
[2024-05-08] VITALS (12 sets, daily range): BP systolic 82–126; BP diastolic 54–81; PULSE 72–102; RESP 12–16; TEMP 36.4–37.4; O2SAT 98–100
--- OUTSIDE RECORDS SUMMARY | 2024-05-08 06:41 | XMS_ITS | Clinical Summary ---
Author Organization [facility] [employer] Address [address] [place] [address] Care Team Providers Care Glassblower Name Role Phone Unavailable Primary Care Provider Unavailabl e Source Comments [facility] [employer],non-owned Affiliates and Associated Physician Practices is amultiple site organization consisting of ambulatory clinics and hospital sitesin [place], [place], [place] and [place]. This disclosure is being madepursuant to the Care Everywhere program and may not contain all information available regarding this patient. Last updated 17.[facility] [employer] Allergies No known active allergies Medications * Be aware that medications may not be up to date on this document. Alwaysverify current medications with the patient. Medication Sig Dispensed Refills Start Date End Date Status Vit-Fe Fumarate-FA ( VITAMIN) 28-0.8 MG tabletIndications:Pre gnancy Take 1 tablet by mouth once daily Reasons: Active Active Problems Problem Noted Date Diagnosed Date Advanced maternal age in multigravida 09/06/2020 Late care 09/06/2020 Overview (09/06/2020): care started at approx 21 wks Family History Medical History Relation Name Comments CVA Father Hypertension Father Relation Name Status Comments Father Social History Tobacco Use Types Packs/Day Years Used Date Smoking Tobacco: Never Smokeless Tobacco: Never Alcohol Use Standard Drinks/Week Comments Not Currently 0 (1 standard drink = 0.6 oz pur e alcohol) Sex and Gender Information Value Date Recorded Sex Assigned at Not on file Gender Identity Not on file Sexual Orientation Not on file Last Filed Vital Signs Vital Sign Reading Time Taken Comments Blood Pressure 103/61 09/08/2020 1:44 PM CDT Pulse - - Temperature - - Respiratory Rate - - Oxygen Saturation - - Inhaled Oxygen Concentration - - Weight 58.5 kg (129 lb) 09/08/2020 1:44 PM CDT Height - - Body Mass Index - - Plan of Treatment Health Maintenance Due Date Last Done Comments PAP SMEAR 1985 HIV SCREENING 11/19/1999 HEPATITIS C SCREENING 11/14/2002 DTAP/TDAP/TD VACCINES (1 - Tdap) 11/19/2003 HEPATITIS B VACCINE (1 of 3 - 19+ 3-dose series) 11/19/2003 COVID-19 VACCINE (1 - 2023-2 5 season) 2023 INFLUENZA VACCINE (#1) 2023 DEPRESSION SCREENING 02/13/2024 ZOSTER VACCINE (1 of 2) 2034 HIB VACCINE Aged Out No longer eligi ble based on patient's age to complete this topic HPV VACCINE Aged Out No longer eligi ble based on patient's age to complete this topic MENINGOCOCCAL (Group B) VACC INE SHARED DECISION-MAKING Aged Out No longer eligibl e based on patient's age to complete this topic MENINGOCOCCAL GROUPS A/C/Y/W VACCINE Aged Out No longer eligible b ased on patient's age to complete this topic PNEUMOCOCCAL VACCINE Aged Out No long er eligible based on patient's age to complete this topic SORAYA BARRAZA Personal/Famil y 1985 [address] [place] [address] JOSE CHOU Personal/Famil y 1985 [address] [place] [address] SORAYA PARMAR Personal/Famil y 1985 [address] [place] [address]
--- NOTE | 2024-05-08 06:50 | ED.FEMALEGU ---
HPI - Female Genitourinary General Chief complaint: COMMERCIAL ILLUSTRATOR Stated complaint: vaginal bleeding Time Seen by Provider: 05/08/24 06:49 Source: patient and family (Mother) Mode of arrival: ambulatory Limitations: no limitations History of Present Illness HPI Narrative: 38-year-old presents with significant vaginal bleeding. She thought she was starting her menstrual cycle due to the timing and the fact that she was having some vaginal bleeding with associated cramping last night. She woke up and had profuse amount of blood. After she denies being sexually active but then she does state that she last had sex 1 week ago. Denies any previous history of sexually transmitted infection, treated or otherwise. Last oral intake last night. Denies any other mucosal bleeding. Denies any in recent instrumentation or insertion of foreign body/sex toys. Patient states she has not seen an Ob Gyne in a long time. States this has never happened before. 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 HEAD: Normocephalic, atraumatic. EYES: Non injected, non icteric ENT: Nares clear, no rhinorrhea or epistaxis. NECK: Supple. CHEST: Speaking in full sentences. No respiratory distress. HEART: Regular rate and rhythm. . ABDOMEN: Soft, nondistended. No TTP; no rigidity/guarding. Not peritoneal. : Normal external female genitalia with large clot burden at introitus. Patient is also hemorrhaged saturating balled up cloth in her underwear, saturated her pants, and bled with large clots on wheelchair. EXTREMITIES: Normal range of motion. No lower extremity edema. SKIN: Warm, dry, no rash. NEURO: No focal deficits. Alert and oriented x3. PSYCH: Normal mood and affect. Course Vital Signs Vital signs: Vital Signs Temperature 98.1 F 05/08/24 06:46 Pulse Rate 96 05/08/24 06:46 Respiratory Rate 16 05/08/24 06:46 Blood Pressure 126/76 05/08/24 06:46 Pulse Oximetry 100 05/08/24 06:46 Oxygen Delivery Room Air 05/08/24 06:46 Temperature 99.3 F 05/08/24 09:20 Pulse Rate 86 05/08/24 09:20 Respiratory Rate 12 05/08/24 09:00 Blood Pressure 97/63 L 05/08/24 09:20 Pulse Oximetry 100 05/08/24 09:20 Oxygen Delivery Room Air 05/08/24 09:20 MDM - Female Genitourinary MDM Narrative Medical decision making narrative: female presents with heavy vaginal bleeding. In the emergency department they are afebrile with vital signs within normal limits. Patient states she has not seen an Ob Gyne in a long time. Per review of the EMR was previously Holly Stephens / Otis Hernandez. Leukocytosis. Patient is not initially anemic. Mild hyperglycemia with no anion gap acidosis. Patient reassessed and performed external genital exam. Scant amount of blood at introitus, none on the new paige that has been placed under patient after initial pelvic exam. Patient states feeling better. Patient's beta hCG is positive, greater than 2000. Patient is informed of this and that this is currently a of unknown location and she will be undergoing ultrasound imaging. She verifies understanding. States pain is ok. Patient signed out to oncoming ED attending. 1L IV fluids ordered for some intermittent borderline pressures. As he was going to assess her, it was noted that she was altered/confused, hypotensive. She has become bradycardic, presumably vagaled. Patient has defecated and has significant vaginal bleeding again. 2nd L IV fluids ordered and other ED attending goes to bedside to establish IV access. Charge nurse confirms 2U blood ordered; blood bank notes she has particular antibodies and will attempt to expedite cross / match . Spoke with Dr. Reid, covering for Dr Hernandez's practice. Verifies understanding and is in agreement with the plan. Noted that she needs a D&C. Will take to the or. BP and HR improving. Differential Diagnosis Differential diagnosis: Likely urinary tract infection (hemorragic cystitis), bacterial vaginosis, trichomoniasis, ruptured ovarian cyst, cystitis and other (Menorrhagia, ectopic , ; thyroid dysfunction; coagulopathy) Lab Data Attestation: I reviewed the patient's lab results. 05/08/24 06:52 05/08/24 06:52 Labs: Lab Results 05/08/24 05/08/24 Range/Units 06:52 08:20 WBC 13.3 H (4.5-10.0) K/mm3 RBC 4.66 (4.2-5.4) M/mm3 Hgb 13.7 (12.0-15.0) g/dL Hct 41.3 (37.0-47.0) % MCV 88.6 (80-100) fl MCH 29.4 (26-34) pg MCHC 33.2 (32-36) g/dl RDW 13.7 (11.5-14.5) % Plt Count 177 (150-375) k/mm3 MPV 11.4 H (7.4-10.4) fl Immature Gran % (Auto) 0.4 (0-0.5) % Neut % (Auto) 65.7 (45.5-73.1) % Lymph % (Auto) 26.3 (18.3-44.2) % [place] % (Auto) 6.0 (2.6-8.5) % Eos % (Auto) 1.2 (0-4.4) % Baso % (Auto) 0.4 (0.2-1.2) % Lymph # (Auto) 3.50 H (0.9-3.2) K/mm3 [place] # (Auto) 0.8 H (0.1-0.6) K/mm3 Eos # (Auto) 0.2 (0-0.3) K/mm3 Baso # (Auto) 0.1 (0.0-0.1) K/mm3 Abs Immat Gran (auto) 0.05 H (0.00-0.031) K/mm3 Absolute Neuts (auto) 8.8 H (1.3-6.7) K/mm3 Absolute Nucleated RBC 0.000 (0.0-0.012) K/mm3 Nucleated RBC % 0.0 (0.0-0.2) % PT 13.8 (11.1-14.7) Seconds INR 1.0 APTT 24.4 (22.3-36.8) Seconds Sodium 137 (137-145) mmol/L Potassium 3.4 (3.4-5.0) mmol/L Chloride 106 (98-107) mmol/L Carbon Dioxide 20 L (22-30) mmol/L Anion Gap 11 (4-12) mmol/L BUN 11 (7-17) mg/dL Creatinine 0.85 (0.7-1.0) mg/dL Estim Creat Clear Calc 70 ml/min Estimated GFR > 60 (59 - ) Glucose 155 H (65-110) mg/dL Calcium 9.1 (8.4-10.2) mg/dL Total Bilirubin 0.7 (0.2-1.3) mg/dL AST 26 (14-36) U/L ALT 20 (6-35) U/L Alkaline Phosphatase 71 (38-126) U/L Total Protein 7.0 (6.3-8.2) g/dL Albumin 4.4 (3.5-5.1) g/dL TSH 2.940 (0.465-4.680) uIU/mL Beta HCG, Quant 2713.70 mIU/ML Urine Color Yellow (Yellow) Urine Appearance Clear (Clear) Urine pH 5.5 (5.0-9.0) Ur Specific [place] 1.023 (1.001-1.035) Urine Protein Trace (Negative) mg/dL Urine Glucose (UA) Negative (Negative) mg/dL Urine Ketones Trace H (Negative) mg/dL Ur Blood (Man) 3+ H (Negative) Urine Nitrate Negative (Negative) Urine Bilirubin Negative (Negative) Urine Urobilinogen 1.0 (<2.0) mg/dL Add Ur Microanalysis Reviewed Leukocyte Esterase Rfl Negative (Negative) DEDRA/UL Urine RBC >100 H (0-2) /hpf Urine WBC 11-20 H (0-3) /hpf Ur Squamous Epith Cells None seen (Few) /hpf Urine Bacteria None seen /hpf Urine Casts 3-5 C. trachomatis (PCR) Pending N. gonorrhoeae (PCR) Pending T. vaginalis (PCR) Not detected (NOT DETECTE) Blood Type O Positive Antibody Screen Positive Antibody Identification Pending Antigen Identification Pending HECTOR, IgG Interpret Pending HECTOR, Poly Interpret Pending HECTOR, Complement Interp Pending Screen Pending Baby's Blood Type Pending Baby's HECTOR Pending Doses of RhIg Required Pending Discharge Plan Discharge Clinical Impression: Leukocytosis, Abnormal vaginal bleeding, Hyperglycemia, of unknown anatomic location Patient Disposition: Still a Patient Condition: Serious
[2024-05-08] MEDS: ONDANSETRON INJ 4 MG/2 ML VIAL IV PUSH (06:52)
[2024-05-08 07:02] LABS: Basophils Absolute Auto 0.1 K/mm3 (0.0-0.1); Basophils Percent Auto 0.4 % (0.2-1.2); Eosinophils Absolute Auto 0.2 K/mm3 (0-0.3); Eosinophils Percent Auto 1.2 % (0-4.4); Hematocrit 41.3 % (37.0-47.0); Hemoglobin 13.7 g/dL (12.0-15.0); Immature Granulocyte Absolute 0.05 K/mm3 (0.00-0.031); Immature Granulocyte Percent A 0.4 % (0-0.5); Lymphocytes Percent Auto 26.3 % (18.3-44.2); Mean Corpuscular HGB Conc 33.2 g/dl (32-36); Mean Corpuscular Hemoglobin 29.4 pg (26-34); Mean Corpuscular Volume 88.6 fl (80-100); Mean Platelet Volume 11.4 fl (7.4-10.4); Monocytes Absolute Auto 0.8 K/mm3 (0.1-0.6); Neutrophils Absolute Auto 8.8 K/mm3 (1.3-6.7); Neutrophils Percent Auto 65.7 % (45.5-73.1); Platelet Count Result 177 k/mm3 (150-375); Red Blood Count 4.66 M/mm3 (4.2-5.4); Red Cell Distribution Width 13.7 % (11.5-14.5); White Blood Count 13.3 K/mm3 (4.5-10.0)
[2024-05-08 07:14] LABS: Alanine Aminotransferase 20 U/L (6-35); Albumin Level 4.4 g/dL (3.5-5.1); Alkaline Phosphatase 71 U/L (38-126); Anion Gap 11 mmol/L (4-12); Aspartate Amino Transferase 26 U/L (14-36); Bilirubin,Total 0.7 mg/dL (0.2-1.3); Blood Urea Nitrogen 11 mg/dL (7-17); Calcium 9.1 mg/dL (8.4-10.2); Carbon Dioxide 20 mmol/L (22-30); Chloride 106 mmol/L (98-107); Estimated CRCL calculation 70 ml/min; Estimated Glomerular Filt Rate > 60; Glucose 155 mg/dL (65-110); Potassium 3.4 mmol/L (3.4-5.0); Sodium 137 mmol/L (137-145)
[2024-05-08 07:16] LABS: Prothrombin Time 13.8 Seconds (11.1-14.7)
[2024-05-08 07:17] LABS: Partial Thromboplastin Time 24.4 Seconds (22.3-36.8)
--- OUTSIDE RECORDS SUMMARY | 2024-05-08 07:33 | XMS_ITS | Clinical Summary ---
Author Organization [facility] Address [address] [place] [address] Care Team Providers Care Workers Compensation Claims Adjuster Name Role Phone Unavailable Primary Care Provider Unavailabl e Source Comments [facility],non-owned Affiliates and Associated Physician Practices is amultiple site organization consisting of ambulatory clinics and hospital sitesin [place], [place], [place]. This disclosure is being madepursuant to the Care Everywhere program and may not contain all information available regarding this patient. Last updated 17.[facility] Allergies No known active allergies Medications * [...] topic SORAYA BARRAZA Personal/Famil y 1985 [address] [place] [address] JOSE CHOU Personal/Famil y 1985 [address] [place] [address] SORAYA PARMAR Personal/Famil y 1985 [address] [place] [address]
[2024-05-08] MEDS: ACETAMINOPHEN 325 MG TABLET 650 MG PO (08:00)
[2024-05-08] MEDS: SODIUM CHLORIDE 0.9% IV 1,000 ML 999 ML IV CONT (08:00)
[2024-05-08] MEDS: SODIUM CHLORIDE 0.9% IV 2,000 ML 999 ML (08:22)
--- OUTSIDE RECORDS SUMMARY | 2024-05-08 08:30 | XMS_ITS | Clinical Summary ---
Author Organization [facility] Address [address] [place] [address] Care Team Providers Care Management Trainee Program Stores Name Role Phone Unavailable Primary Care Provider Unavailabl e Source Comments [facility],non-owned Affiliates and Associated Physician Practices is amultiple site organization consisting of ambulatory clinics and hospital sitesin [place], [place], [place] and [place]. This disclosure is being madepursuant to the Care Everywhere program and may not contain all information available regarding this patient. Last updated 17.[facility] Allergies No known active allergies Medications * [...] topic SORAYA BARRAZA Personal/Famil y 1985 [address] [place] [address] JOSE CHOU Personal/Famil y 1985 [address] [place] [address] SORAYA PARMAR Personal/Famil y 1985 [address] [place] [address]
--- NOTE | 2024-05-08 08:31 | PM.IMHP ---
H&P: HPI History of Present Illness Date/Time: 05/08/24 08:31 Chief Complaint: spontaneous missed Narrative: 38-year-old 013 who presents with acute onset vaginal bleeding. Patient was unaware that she was . Patient started having heavy vaginal bleeding and cramping. Patient was hemodynamically stable on arrival to the ER. Beta HCG returned at 27,000. patient continued to have vaginal bleeding while in the ER. Patient was passing several large clots. Patient became hypotensive and pale. For vaginal bleeding continued. Decision was made to proceed to the OR for D and C to control vaginal bleeding Review of Systems Cardiovascular: Cardiovascular: Denies chest pain, Denies leg edema, Denies palpitations, Denies dyspnea and Denies dyspnea on exertion Respiratory: Respiratory: Denies cough, Denies dyspnea and Denies dyspnea on exertion Gastrointestinal: Gastrointestinal: Denies abdominal pain, Denies constipation, Denies diarrhea, Denies nausea and Denies vomiting Genitourinary: Genitourinary: Denies hematuria, Denies urinary frequency, Denies dysuria, Denies pelvic pain, Denies urinary incontinence and Denies vaginal discharge Neurologic: Reports system reviewed and no additional complaints, except as documented Psychiatric: Psychiatric: Reports no additional psychiatric complaints Endocrine: Endocrine: Denies palpitations PMFSH Family History Family History Father Hypertension Mother Hypotension Sibling Psoriasis Social History Social History Smoking status: Never smoker Second hand tobacco smoke exposure: No Substance use: never 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 Spiritual care concerns: No Meds Home Medications and Allergies Home Medications ?Medication ?Instructions ?Recorded ?Confirmed ?Type vit no.95-ferrous 1 tablet PO DAILY 03/17/19 12/13/20 History fumarate 28 mg-folic acid 800 mcg tablet () ibuprofen 600 mg tablet 600 mg PO Q6H PRN Cramping #30 tabs 12/14/20 Rx Allergies Allergy/AdvReac Type Severity Reaction Status Date / Time No Known Allergies Allergy Verified 05/08/24 06:51 Vital Signs Vital Signs - 24 hr 05/08/24 06:46 05/08/24 07:37 Temperature 98.1 F Pulse Rate 96 82 Respiratory Rate 16 13 Blood Pressure 126/76 92/81 L Pulse Oximetry 100 100 Oxygen Delivery Room Air Exam Const: General: no acute distress Eyes: EOM: EOMs intact bilaterally Neck: Neck: supple Thyroid: thyroid normal Chest: Breast/axilla inspection: normal inspection of the breasts Breast/axilla palpation: normal palpation of the breasts, normal palpation of the axillae and no axillary lymphadenopathy Resp: Effort & Inspection: normal respiratory effort Auscultation: clear to auscultation bilaterally Cardio: Rate: regular rate Rhythm: regular rhythm GI: Inspection: non-distended GI Palp: Yes Soft to palpation, No Tenderness to palpation present (GI) and No Guarding due to palpation present (GI) Auscultation: normal bowel sounds : General: No bladder normal to palpation External Female Exam: normal external appearance Speculum Exam - Vagina: normal vaginal discharge and No vaginal bleeding Speculum Exam - Cervix: nontender Bimanual exam- vagina & uterus: No bladder normal to palpation and No Cervical tenderness present OB/external & speculum: No vaginal bleeding Skin: General skin exam: normal color and no rashes or lesions noted Neuro: Cognition (Neuro): normal cognition Speech: normal speech Extrem: General: normal to inspection and no edema Psych: Mental Status: mental status grossly normal Affect: normal affect H&P: Results Labs Labs: Short CBC 05/08/24 Range/Units 06:52 WBC 13.3 H (4.5-10.0) K/mm3 Hgb 13.7 (12.0-15.0) g/dL Hct 41.3 (37.0-47.0) % Plt Count 177 (150-375) k/mm3 BMP 05/08/24 06:52 Sodium 137 Potassium 3.4 Chloride 106 Carbon Dioxide 20 L BUN 11 Creatinine 0.85 Glucose 155 H Calcium 9.1 Liver Function 05/08/24 Range/Units 06:52 Total Bilirubin 0.7 (0.2-1.3) mg/dL AST 26 (14-36) U/L ALT 20 (6-35) U/L Alkaline Phosphatase 71 (38-126) U/L Albumin 4.4 (3.5-5.1) g/dL Assessment and Plan Assessment and plan (1) Bleeding in early : Code(s): O20.9 - Hemorrhage in early , unspecified Status: Acute Assessment and Plan: 38-year-old 013 who presents with acute onset vaginal bleeding Patient was found to be incidentally Beta HCG levels 27,000 Rh positive Patient hemodynamically stable upon arrival to the ER Vaginal bleeding continued Patient began hypotensive and pale ER provider started emergent blood transfusion Decision was made to proceed to the OR for D and C Risks, benefits, alternatives discussed Will plan for suction D&C for management of early loss (2) of unknown anatomic location: Code(s): O36.80X0 - with inconclusive viability, not applicable or unspecified Status: Acute Assessment and Plan: patient incidentally found be upon arrival to the ER Patient has continued to have brisk vaginal bleeding Patient has weak, hypotensive and pale Unable to obtain pelvic ultrasound prior to proceeding to D&C
[2024-05-08 08:49] LABS: Add Urine Microscopic? YES; Appearance Urine Clear (Clear); Bacteria Urine None Seen /hpf; Bilirubin Urine Negative (Negative); Blood Urine 3+ (Negative); Color Urine Yellow (Yellow); Glucose Urine UA Negative (Negative); Ketones Urine Trace mg/dL (Negative); Leukocyte Esterase Ur Negative LEU/UL (Negative); Need Manual Microscopic Reviewed; Nitrate Urine Negative (Negative); Protein Urine Trace mg/dL (Negative); RBC Urine >100 /hpf (0-2); Specific Grav Ur 1.023 (1.001-1.035); Squamous Epithelial Cell Urine None Seen /hpf (Few); pH Urine 5.5 (5.0-9.0)
--- NOTE | 2024-05-08 08:50 | WPDHPUPDATE1 ---
History and Physical Update Update Date/Time: 05/08/24 08:50 HCG 2713 Proceed with suction curettage under ultrasound guidance History and Physical has been reviewed, including an updated exam of the patient. There are NO changes in the patient's condition. Risks, benefits, and alternatives have been discussed and questions answered. Patient agrees to proceed with procedure.
[2024-05-08] MEDS: TUBING, BLOOD SET 2 EACH XX (08:55)
[2024-05-08] MEDS: SODIUM CHLORIDE 0.9% IV 250 ML 30 ML IV CONT (08:55)
--- NOTE | 2024-05-08 09:20 | WPDANESEPPF ---
Anes - Initial Pre Proc Eval Procedure: Operation Date: 05/08/24 07:30 Proposed Procedures p Suction Dilatation and Curettage - Otis Hernandez MD Date/Time: 05/08/24 09:20 Surgeon: Camden Reid MD Pre Op Diagnosis: vaginal bleeding Patient Data Age: 38 Gender: F Height: 1.73 m Weight: 57 kg Last Vital Signs Temp 97.6 F 05/08/24 09:00 Pulse 88 05/08/24 09:00 Resp 12 05/08/24 09:00 BP 112/61 05/08/24 09:00 Pulse Ox 100 05/08/24 09:00 O2 Del Method Room Air 05/08/24 06:46 Allergies Allergy/AdvReac Type Severity Reaction Status Date / Time No Known Allergies Allergy Verified 05/08/24 06:51 Home Medications ?Medication ?Instructions ?Recorded ?Confirmed ?Type vit no.95-ferrous 1 tablet PO DAILY 03/17/19 12/13/20 History fumarate 28 mg-folic acid 800 mcg tablet () ibuprofen 600 mg tablet 600 mg PO Q6H PRN Cramping #30 tabs 12/14/20 Rx Laboratory Tests 05/08/24 05/08/24 06:52 08:20 WBC 13.3 H K/mm3 (4.5-10.0) RBC 4.66 M/mm3 (4.2-5.4) Hgb 13.7 g/dL (12.0-15.0) Hct 41.3 % (37.0-47.0) MCV 88.6 fl (80-100) MCH 29.4 pg (26-34) MCHC 33.2 g/dl (32-36) RDW 13.7 % (11.5-14.5) Plt Count 177 k/mm3 (150-375) MPV 11.4 H fl (7.4-10.4) Immature Gran % (Auto) 0.4 % (0-0.5) Neut % (Auto) 65.7 % (45.5-73.1) Lymph % (Auto) 26.3 % (18.3-44.2) [place] % (Auto) 6.0 % (2.6-8.5) Eos % (Auto) 1.2 % (0-4.4) Baso % (Auto) 0.4 % (0.2-1.2) Lymph # (Auto) 3.50 H K/mm3 (0.9-3.2) [place] # (Auto) 0.8 H K/mm3 (0.1-0.6) Eos # (Auto) 0.2 K/mm3 (0-0.3) Baso # (Auto) 0.1 K/mm3 (0.0-0.1) Abs Immat Gran (auto) 0.05 H K/mm3 (0.00-0.031) Absolute Neuts (auto) 8.8 H K/mm3 (1.3-6.7) Absolute Nucleated RBC 0.000 K/mm3 (0.0-0.012) Nucleated RBC % 0.0 % (0.0-0.2) PT 13.8 Seconds (11.1-14.7) INR 1.0 APTT 24.4 Seconds (22.3-36.8) Sodium 137 mmol/L (137-145) Potassium 3.4 mmol/L (3.4-5.0) Chloride 106 mmol/L (98-107) Carbon Dioxide 20 L mmol/L (22-30) Anion Gap 11 mmol/L (4-12) BUN 11 mg/dL (7-17) Creatinine 0.85 mg/dL (0.7-1.0) Estim Creat Clear Calc 70 ml/min Estimated GFR > 60 (59 - ) Glucose 155 H mg/dL (65-110) Calcium 9.1 mg/dL (8.4-10.2) Total Bilirubin 0.7 mg/dL (0.2-1.3) AST 26 U/L (14-36) ALT 20 U/L (6-35) Alkaline Phosphatase 71 U/L (38-126) Total Protein 7.0 g/dL (6.3-8.2) Albumin 4.4 g/dL (3.5-5.1) TSH 2.940 uIU/mL (0.465-4.680) Beta HCG, Quant 2713.70 mIU/ML Urine Color Yellow (Yellow) Urine Appearance Clear (Clear) Urine pH 5.5 (5.0-9.0) Ur Specific [place] 1.023 (1.001-1.035) Urine Protein Trace mg/dL (Negative) Urine Glucose (UA) Negative mg/dL (Negative) Urine Ketones Trace H mg/dL (Negative) Ur Blood (Man) 3+ H (Negative) Urine Nitrate Negative (Negative) Urine Bilirubin Negative (Negative) Urine Urobilinogen 1.0 mg/dL (<2.0) Add Ur Microanalysis Reviewed Leukocyte Esterase Rfl Negative DEDRA/UL (Negative) Urine RBC >100 H /hpf (0-2) Urine WBC 11-20 H /hpf (0-3) Ur Squamous Epith Cells None seen /hpf (Few) Urine Bacteria None seen /hpf Urine Casts 3-5 C. trachomatis (PCR) Pending N. gonorrhoeae (PCR) Pending T. vaginalis (PCR) Pending Blood Type O Positive Antibody Screen Positive Antibody Identification Pending Antigen Identification Pending HECTOR, IgG Interpret Pending HECTOR, Poly Interpret Pending HECTOR, Complement Interp Pending Screen Pending Baby's Blood Type Pending Baby's HECTOR Pending Doses of RhIg Required Pending Patient hx anesthesia problems: none Family hx anesthesia problems: none Results Review: All pre-operative results and documents have been reviewed as part of the pre-operative evaluation. 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 Pt overall healthy, w sig vag bleeding, presented to ER, now for emergent D and C. Pt receiving 2 U PRBCs in preop area w stable hemodynamics. Informed Consent: The patient's anesthetic plan and its attendant risks and benefits were discussed with the patient/family/POA. Questions were solicited and answers provided to the satisfaction of the patient/family/POA.
--- NOTE | 2024-05-08 09:22 | PC.NURSE ---
This RN started 2 units of PRBC's at 0855, paperwork signed by this RN and Verito Calderon RN. 09 HR 102 R 17 Sp02 100% BP 98/60 0910 This RN and an health technician hearing transported pt with 2 units transfusing and belongings to preop. Report and paperwork given to MARGY Hartmann and MARGY Hyman.
[2024-05-08] MEDS: LACTATED RINGERS 1,000 ML 30 ML IV CONT (09:30)
[2024-05-08 09:44] LABS: Trichomonas Vag PCR NOT DETECTED (NOT DETECTE)
--- NOTE | 2024-05-08 10:05 | P.OP_ITS ---
Procedure Note - Detailed Date of Procedure 05/08/24 Pre-op Diagnosis 1. Incomplete miscarriage 2. Unknown gestational age Post-op Diagnosis Same Procedure Performed 1. Intraoperative ultrasound 2. Suction curettage Surgeon Otis Hernandez MD Anesthesia MAC Findings Gestational sac at cervix, moderate amount of retained tissue. At end of procedure ultrasound revealed thin endometrial stripe from cervix to fundus with no retained tissue. Description of Procedure Patient prepped and draped usual manner for this procedure. During initial bimanual exam which revealed an 8 size with uterus, gestational sac was noted to be in the lower uterine segment and was removed manually. 10mm suction curette was then placed with removal of moderate amount of retained tissue. There was minimal bleeding at this point. Ultrasound was performed and revealed no shama ined products. At this point the procedure was considered terminated and patient was sent to recovery room in stable condition. H&H will be drawn as she has received 2units packed RBC, and decision on discharge or further observation will be determined based on clinical findings. Estimated Blood Loss 50 Drains No Packing No Pathology Yes Complications No immediate complications Condition Stable Disposition PACU [facility] Billing Surgery - Charge Forward: Surgery Billing
[2024-05-08 10:07] LABS: Chlamydia trachomatis NOT DETECTED (NOT DETECTE); Neisseria gonorrhoeae PCR NOT DETECTED (NOT DETECTE)
--- NOTE | 2024-05-08 10:09 | SUR.PREOP ---
per ED MARGY Payne and per Maryanne in lab blood transfusion to be completed on paper and sent to lab after complete. Maryanne said they will enter in TAR at later time, original sent to lab and copy placed on chart.
[2024-05-08 10:47] LABS: Hematocrit 35.6 % (37.0-47.0); Hemoglobin 11.8 g/dL (12.0-15.0)
--- NOTE | 2024-05-08 11:33 | SUR.PHASEII ---
MD Hernandez at bedside - pt ok to discharge. VS Stable. Pt states she feels ready to discharge home.
== END 2024-05-08 11:39 | disposition home or self-care (01) ==
LOC: ANHED 07:32 → ANHSURGERY 08:20
PROVIDERS: Obstetrics & Gynecology; Emergency Provider Student in an Organized Health Care Education/Training Program; Visit Provider Student in an Organized Health Care Education/Training Program
PROC: (CPT 59812; principal; 2024-05-08 07:30)
DX: O03.4 Incomplete spontaneous abortion without complication (principal); G89.18 Other acute postprocedural pain; Z79.1 Long term (current) use of non-steroidal anti-inflammatories (NSAID)
CPT/HCPCS: 59812; 36415; 36430; 80053; 81001; 84443; 84702; 85014; 85018; 85025; 85461; 85610; 85730; 86850; 86880; 86900; 86901; 86902; 86922; 87086; 87186; 87491; 87591; 87661; 88305; 96361; 96374; 96375; 99285; A9270; J2405; J2704; J3010; J7030; J7050; J7120; P9016